=== PATIENT | female | born 1980 | race Caucasian/White ===

== ENCOUNTER 2025-03-05 13:44 | Outpatient (OUT) | payer BC, SELFPAY ==
--- OUTSIDE RECORDS SUMMARY | 2025-03-05 13:10 | XMS_ITS | Encounter Summary ---
Author Organization [facility] Address [address] [place] [address] Care Team Providers Care Electronics Design Engineer Name Role Phone Unavailable Primary Care Provider Unavailabl e Reason for Visit * Reason Comments PCOS, Not Currently Desiring Encounter Details Date Type Department Care Team (Late Contact Info) Description 03/05/2025 1:10 PM EDT Office Visit JAMAR WAGNER [address] [place] [phone] Teja Potter DO [address] [place] [address] [address] [place], [place] [id number] PCOS (polycystic ovarian syndrome); Dysmenorrhea; Abnormal facial hair; Other acne; History of pulmonary embolus (PE) Social History Tobacco Use Types Packs/Day Years Used Date Smoking Tobacco: Never Assessed Comments Unknown Sex and Gender Information Value Date Recorded Sex Assigned at Not on file Legal Sex Female 3:33 PM EDT Gender Identity Not on file Sexual Orientation Not on file documented as of this encounter Last Filed Vital Signs Vital Sign Reading Time Taken Comments Blood Pressure 110/72 03/05/2025 1:18 PM EDT Pulse - - Temperature - - Respiratory Rate - - Oxygen Saturation - - Inhaled Oxygen Concentration - - Weight 88.4 kg (194 lb 12.8 oz) 03/05/2025 1:18 PM EDT Height - - Body Mass Index - - documented in this encounter Plan of Treatment Upcoming Encounters Date Type Department Care Team (Late Contact Info) Description 03/28/2025 8:00 AM EDT Ancillary Procedure [facility]AG[facility] [address] [facility] [place] [phone] 04/25/2025 9:40 AM EDT Procedure Visit [facility] Saurabh WAGNER [address] [facility] [address] Teja Potter DO [address] [facility] [place] [address] Scheduled Orders Name Type Priority Associated Diagnoses Orde r Schedule Testosterone, free, total Lab Routine Dysmenorrhea Ordered: 03/05/2025 hCG, quantitative, Lab Routine PCOS (polycystic ovarian syndrome) Ordered: 03/05/2025 TSH Lab Routine PCOS (polycystic ovarian syndrome) Ordered: 03/05/2025 T4, free Lab Routine PCOS (polycystic ovarian syndrome) Ordered: 03/05/2025 CBC and differential Lab Routine PCOS (polycystic ovarian syndrome) Ordered: 03/05/2025 Follicle stimulating hormone Lab Routine PCOS (polycystic ovarian syndrome) Ordered: 03/05/2025 Luteinizing hormone Lab Routine PCOS (polycystic ovarian syndrome) Ordered: 03/05/2025 Hemoglobin A1c Lab Routine Dysmenorrhea Ordered: 03/05/2025 DHEA-sulfate Lab Routine PCOS (polycystic ovarian syndrome) Ordered: 03/05/2025 DHEA Lab Routine PCOS (polycystic ovarian syndrome) Expected: 03/05/2025 (Approximate), Expires: 03/05/2026 US Pelvis w/ TV Imaging Routine PCOS (polycystic ovarian syndrome) Expected: 03/05/2025, Expires: 03/05/2026 documented as of this encounter Visit Diagnoses Diagnosis PCOS (polycystic ovarian syndrome) Polycystic ovaries Dysmenorrhea Abnormal facial hair Other acne History of pulmonary embolus (PE) documented in this encounter
--- OUTSIDE RECORDS SUMMARY | 2025-03-05 13:50 | XMS_ITS | Clinical Summary ---
Author Organization [employer] [facility] tem Address [id number] [address] [place] [address] Care Team Providers Care Armature Winder Repair Name Role Phone Services, [facility] Primary Care Provider Allergies No known active allergies Medications * This document contains information received from the source organization and may not represent a complete record from that organization. ALPRAZolam (XANAX) 1 mg tablet Take 1 mg by mouth nightly as needed for anxiety. Active SUMAtriptan (IMITREX) 100 mg tabletIndicatio ns:migraine Take 100 mg by mouth once as needed for migraine (Take one tablet at onset of headache, and one tablet 2 hrs after first dose) Indications: Migraine. May repeat in 2 hours if unresolved. Do not exceed 200 mg in 24 hours. Active ibuprofen (ADVIL,MOTRIN) 800 mg tablet Take 1 tablet (800 mg total) by mouth every 8 (eight) hours as needed for pain for up to 30 doses. 30 tablet 0 03/21/2017 Active DESVENLAFAXINE SUCCINATE (PRISTIQ ORAL) Take by mouth. Active SUMAtriptan (IMITREX) 100 mg tablet Take 1 tablet (100 mg total) by mouth once as needed for migraine for up to 9 doses. Repeat once in 2 hrs prn--(2 only in 24 hr) 9 tablet 08/21/2017 Active amitriptyline (ELAVIL) 25 mg tablet 0 03/10/2019 Active ALPRAZolam (XANAX) 1 mg tablet Take 1 mg by mouth 2 (two) times a day as needed. 0 01/27/2019 Active phentermine (ADIPEX-P) 37.5 mg tablet Take 37.5 mg by mouth daily. 0 03/26/2019 Active Active Problems Problem Noted Date Diagnosed Date Bipolar disorder 12/26/2015 Immunizations Immunization Administration Dates Next Due Tdap 12/24/2015 Social History Tobacco Use Types Packs/Day Years Used Date Smoking Tobacco: Smoker, Current Status Unknown Smokeless Tobacco: Never Alcohol Use Standard Drinks/Week Comments Yes 0 (1 standard drink = 0.6 oz pure alcohol) social drinker 4-5 mixed drinks twicw a month Childcare Answer Date Recorded Childcare Unknown 12/20/2018 Employment Answer Date Recorded Employment Unknown 12/20/2018 Hunger Screening Answer Date Recorded Within the past 12 months we worried whether our food would run out before we got money to buy more. Never True 08/10/2024 Within the past 12 months th e food we bought just didn't last and we didn't have money to get more. Never True 08/10/2024 Purpose - Life Answer Date Recorded Purpose and direction in life Unknown Comments No Sex and Gender Information Value Date Recorded Sex Assigned at Not on file Legal Sex Female 11:58 AM EDT Gender Identity Not on file Sexual Orientation Not on file Last Filed Vital Signs Vital Sign Reading Time Taken Comments Blood Pressure 139/75 08/10/2024 8:52 PM EST Pulse 62 08/10/2024 8:52 PM EST Temperature 36.5 C (97.7 F) 08/10/2024 8:52 PM EST Respiratory Rate 17 08/10/2024 8:52 PM EST Oxygen Saturation 99% 08/10/2024 8:52 PM EST Inhaled Oxygen Concentration - - Weight 88.5 kg (195 lb) 05/14/2022 6:52 AM EDT Height 157.5 cm (5' 2 ) 05/14/2022 6:52 AM EDT Body Mass Index 35.67 05/14/2022 6:52 AM EDT Plan of Treatment Health Maintenance Due Date Last Done Comments Tobacco Counseling 1982 Depression Screening 1994 Pap Smear 09/20/2003 Adult BMI Screening 05/14/2023 05/14/2022 Influenza Vaccine 03/11/2025 Tobacco Screening 08/10/2025 08/10/2024 DTaP,Tdap and Td Vaccines (2 - Td or Tdap) 12/23/2025 12/24/2015 Medical Devices Not on file Insurance [employer] Advance Directives * Full Code (Latest Code Status on File) Date Activated Date Inactivated Comments 12/25/2015 3:30 AM 12/28/2015 3:55 PM Care Teams Armature Winder Repair Relationship Specialty Start Date End Date [facility], [place] [id number] [place] PCP - General Family Medicine 04/04/19
--- OUTSIDE RECORDS SUMMARY | 2025-03-05 13:50 | XMS_ITS | Encounter Summary ---
Author Organization [facility] Address [address] [place] [address] Care Team Providers Care Tray Room Worker Name Role Phone Unavailable Primary Care Provider Unavailabl e Encounter Details Date Type Department Care Team (Late st Contact Info) Description 03/05/2025 Bamboo flowsheet JAMAR WAGNER [address] [place] [phone] Teja Potter, DO [address] [place], [place] [phone] Social History Tobacco Use Types Packs/Day Years Used Date Smoking Tobacco: Never Assessed Comments Unknown Sex and Gender Information Value Date Recorded Sex Assigned at Not on file Legal Sex Female 3:33 PM EDT Gender Identity Not on file Sexual Orientation Not on file documented as of this encounter Plan of Treatment Upcoming Encounters Date Type Department Care Team (Late st Contact Info) Description 03/28/2025 8:00 AM EDT Ancillary Procedure [facility]AG[facility] [address] [facility] [place] [phone] 04/25/2025 9:40 AM EDT Procedure Visit JAMAR WAGNER [address] [place] [phone] Teja Potter, [address] [place], [place] [phone] documented as of this encounter Visit Diagnoses Not on filedocumented in this encounter
--- OUTSIDE RECORDS SUMMARY | 2025-03-05 13:50 | XMS_ITS | Clinical Summary ---
Author Organization [facility] Address [facility] [place] [address] Care Team Providers Care Real Estate Processor Name Role Phone Unavailable Primary Care Provider Unavailabl e Allergies No known active allergies Medications SUMAtriptan (Imitrex) 100 MG tablet Take 100 mg by mouth 1 (one) time if needed Active Encounters Date Type Department Care Team Description 03/05/2025 1:10 PM EDT Office Visit JAMAR WAGNER [address] [place] [address] [place] [phone] Teja Potter DO PCOS (polycystic ovarian syndrome); Dysmenorrhea; Abnormal facial hair; Other acne; History of pulmonary embolus (PE) 03/05/2025 Bamboo flowsheet NOMGio WAGNER [address] [place], [place] [address] [phone] Teja Potter DO from Last 3 Months Family History Medical History Relation Name Comments Diabetes Other htn Other Relation Name Status Comments Other Social History Tobacco Use Types Packs/Day Years [...] - - Body Mass Index - - Plan of Treatment Upcoming Encounters Date Type Department Care Team ( Contact Info) Description 03/28/2025 8:00 AM EDT Ancillary Procedure NOMGio WAGNER [address] [place] [phone] 04/25/2025 9:40 AM EDT Procedure Visit NOMGio WAGNER [address] [place] [phone] Teja Potter DO [address] [facility] [place] [address] Insurance BS
[2025-03-05 14:23] LABS: Hematocrit 41.5 % (36.0-48.0); Hemoglobin 14.0 g/dL (12.0-16.0); Immature Granulocytes Abs Auto 0.04 10^3/uL (0.00-0.03); Immature Granulocytes Pct Auto 0.5 % (0.0-0.5); Lymphocytes Absolute Auto 1.9 10^3/uL (1.2-3.8); Mean Corpuscular HGB Conc 33.7 g/dL (29.9-35.2); Mean Corpuscular Hemoglobin 31.9 pg (26.7-34.0); Mean Corpuscular Volume 94.5 fL (81.0-99.0); Platelet Count 307 10^3/uL (150-450); Red Blood Count 4.39 10^6/uL (4.20-5.40); White Blood Count 8.0 10^3/uL (4.0-11.0)
[2025-03-05 14:53] LABS: Thyroid Stimulating Hormone 0.888 uIU/mL (0.358-3.740)
[2025-03-06 04:07] LABS: FSH 3.0 mIU/mL (.)
[2025-03-14 03:07] LABS: DHEA, Serum 262 ng/dL (31-701)
== END 2025-03-05 13:45 | disposition home or self-care (01) ==
PROVIDERS: PCP Family Medicine; Visit Provider Obstetrics & Gynecology
DX: N94.6 Dysmenorrhea, unspecified (principal); E28.2 Polycystic ovarian syndrome
CPT/HCPCS: 36415; 82626; 82627; 83001; 83002; 83036; 84402; 84403; 84439; 84443; 84702; 85025

== ENCOUNTER 2025-04-25 12:36 | Outpatient (REF) | payer BC, SELFPAY ==
--- OUTSIDE RECORDS SUMMARY | 2025-04-25 09:40 | XMS_ITS | Encounter Summary ---
Author Organization [facility] Address [address] [place] [address] Care Team Providers Care Trim Operator Name Role Phone Unavailable Primary Care Provider Unavailabl e Reason for Visit * Reason Comments Gynecologic Exam Encounter Details Date Type Department Care Team (Latest Contact Info) Description 04/25/2025 9:40 AM EDT Procedure Visit JAMAR [place] [facility] [address] [facility] [place] [phone] Teja Potter DO [address] [place], [id number] Well woman exam with routine gynecological exam; Encounter for screening mammogram for malignant neoplasm of breast Social History Tobacco Use Types Packs/Day Years Used Date Smoking Tobacco: Never Assessed Comments No Sex and Gender Information Value Date Recorded Sex Assigned at Not on file Legal Sex Female 3:33 PM EDT Gender Identity Not on file Sexual Orientation Not on file documented as of this encounter Last Filed Vital Signs Vital Sign Reading Time Taken Comments Blood Pressure 114/72 04/25/2025 9:43 AM EDT Pulse - - Temperature - - Respiratory Rate - - Oxygen Saturation - - Inhaled Oxygen Concentration - - Weight 88 kg (194 lb) 04/25/2025 9:43 AM EDT Height 157.5 cm (5' 2 ) 04/25/2025 9:43 AM EDT Body Mass Index 35.48 04/25/2025 9:43 AM EDT documented in this encounter Progress Notes * Teja Potter DO - 04/25/2025 9:40 AM EDT Reason for Appointment: Patient ID: Miranda Hutchison is a 44 y.o. female who presents for Gynecologic Exam Patient presents today for Annual Exam. Current Medications: has a current medication list which includes the following prescription(s): sumatriptan. Medical History: Active Ambulatory Problems Diagnosis Date Noted No Active Ambulatory Problems Resolved Ambulatory Problems Diagnosis Date Noted No Resolved Ambulatory Problems Past Medical History: Diagnosis Date PCOS (polycystic ovarian syndrome) Family History[1] Social History Tobacco Use Smoking status: Not on file Smokeless tobacco: Not on file Substance Use Topics Alcohol use: Not on file Drug use: Not on file Surgical History[2] Allergies[3] Review of Systems: Review of Systems Constitutional: Negative. HENT: Negative. Eyes: Negative. Respiratory: Negative. Cardiovascular: Negative. Gastrointestinal: Negative. Genitourinary: Negative. Musculoskeletal: Negative. Skin: Negative. Neurological: Negative. All other systems reviewed and are negative. Hematological: Negative. Endocrine: Negative. Allergic/Immunologic: Negative. Objective Physical Exam Constitutional: Appearance: Normal appearance. She is well-developed. Genitourinary: Vulva normal. Cardiovascular: Rate and Rhythm: Normal rate and regular rhythm. Pulmonary: Effort: Pulmonary effort is normal. Breath sounds: Normal breath sounds. Abdominal: General: Bowel sounds are normal. There is no distension. Palpations: Abdomen is soft. Tenderness: There is no abdominal tenderness. There is no guarding or rebound. Musculoskeletal: General: No swelling. Normal range of motion. Right lower leg: No edema. Left lower leg: No edema. Neurological: Mental Status: She is alert and oriented to person, place, and time. Skin: General: Skin is warm and dry. Psychiatric: Mood and Affect: Mood normal. Behavior: Behavior normal. Vitals and nursing note reviewed. Exam conducted with a contour stitcher present. Vitals: Estimated body mass index is 35.48 kg/m?? as calculated from the following: Height as of this encounter: 5' 2 . Weight as of this encounter: 194 lb. BP: 114/72 Patient's last menstrual period was 04/18/2025 (approximate). Assessment/Plan Encounter Diagnosis: ICD-10-CM 1. Well woman exam with routine gynecological exam Z01.419 THIN PREP TIS PAP AND HR HPV DNA 2. Encounter for screening mammogram for malignant neoplasm of breast Z12.31 Bilateral screening mammogram Bilateral screening mammogram Annual Exam: Patient presents today for an annual exam. Patient states she is doing well and has no complaints. Pap was obtained without difficulty. Orders Placed This Encounter Procedures Bilateral screening mammogram Follow Up: Patient is to return in one year for annual unless needed otherwise. Documented by Teja Potter DO on behalf of: Teja Potter DO [1] Family History Problem Relation Name Age of Onset Other (htn) Other Diabetes Other [2] Past Surgical History: Procedure Laterality Date SECTION, LOW TRANSVERSE x1 [3] No Known Allergies documented in this encounter Plan of Treatment Scheduled Orders Name Type Priority Associated Diagnoses Orde r Schedule Bilateral screening mammogram Imaging Routine Encounter for screening mammogram for malignant neoplasm of breast Expected: 04/25/2025 (Approximate), Expires: 06/25/2026 THIN PREP TIS PAP AND HR HPV DNA Pathology and Cytology Routine Well woman exam with routine gynecological exam Ordered: 04/25/2025 documented as of this encounter Visit Diagnoses Diagnosis Well woman exam with routine gynecological exam Routine gynecological examination Encounter for screening mammogram for malignant neoplasm of breast documented in this encounter
--- OUTSIDE RECORDS SUMMARY | 2025-04-25 12:40 | XMS_ITS | Clinical Summary ---
Author Organization [facility] Address [address] [place] [address] Care Team Providers Care Repairer Wood Furniture Name Role Phone Unavailable Primary Care Provider Unavailabl e Allergies No known active allergies Medications SUMAtriptan (Imitrex) 100 MG tablet Take 100 mg by mouth 1 (one) time if needed Active Encounters Date Type Department Care Team Description 04/25/2025 9:40 AM EDT [place] [address] Teja Potter DO Well woman exam with routine gynecological exam; Encounter for screening mammogram for malignant neoplasm of breast 04/25/2025 Bambomildred flowsheet [facility] Saurabh WAGNER [address] [place] [address] Teja Potter DO 03/28/2025 8:00 AM EDT Ancillary Procedure [facility] Saurabh WAGNER [address] [place] [address] PCOS (polycystic ovarian syndrome) 03/28/2025 Travel 03/05/2025 1:10 PM EDT [place] [address] Teja Potter DO PCOS (polycystic ovarian syndrome); Dysmenorrhea; Abnormal facial hair; Other acne; History of pulmonary embolus (PE) 03/05/2025 Clinisync Result Encounter [facility] External Department Unsolicited Teja Potter DO 03/05/2025 Bamboo flowsheet [facility] Saurabh WAGNER [address] [place] [address] [place] [address] Teja Potter DO from Last 3 Months [...] Mass Index 35.48 04/25/2025 9:43 AM EDT Plan of Treatment Not on file Procedures Procedure Name Priority Date/Time Associated Diagnosis Comments US PELVIC COMPLETE W/ TV Routine 025 8:44 AM EDT PCOS (polycystic ovarian syndrome) ALL DEHYDROEPIANDROSTERONE Routine 03/05 2:05 PM EDT SRM[facility]H TESTOSTERONE FREE/TOT EQUILIB Routine 03/05/2025 2:05 PM EDT ALL FOLLICLE STIMULATING HORMONE Routine 03/05/2025 2:05 PM EDT ALL LUTEINIZING HORMONE Routine 03/05/20 2:05 PM EDT ALL DHEA SULFATE Routine 03/05/2025 2:05 PM EDT ALL THYROXINE (T4) FREE Routine 03/05/20 2:05 PM EDT TBH PREG QUANT HCG Routine 03/05/2025 2: 05 PM EDT ALL THYROID STIM HORMONE Routine 025 2:05 PM EDT MLR HEMOGLOBIN A1C Routine 03/05/2025 2: 05 PM EDT ALL CBC WITH AUTO DIFF Routine 2:05 PM EDT from Last 3 Months Results * US Pelvis w/ TV (03/28/2025 8:44 AM EDT) Anatomical Region Laterality Modality Pelvis Ultrasound 03/28/2025 12:1 0 PM EDT Impressions 03/28/2025 1:07 PM EDT 1. Normal uterine and endometrial appearance. 2. Follicular appearing ovaries. TRANSCRIBED BY: ELECTRONICALLY SIGNED BY: Ha Mckeon MD Narrative 03/28/2025 1:07 PM EDT FINDINGS: Uterus 9.6 x 4.3 x 5.5 cm Endometrium 8 mm Right Ovary 3.5 x 2.6 x 3.0cm Left Ovary 3.6 x 2.8 x 3.0cm Normal uterine orientation and morphology are identified. No worrisome mass lesions are seen. No pelvic fluid is present. Bilateral ovaries demonstrate small peripheral follicles, unremarkable in appearance. Overall appearance is normal for this age. Procedure Note Ha Mckeon MD - 03/28/2025 FINDINGS: Uterus 9.6 x 4.3 x 5.5 cm Endometrium 8 mm Right Ovary 3.5 x 2.6 x 3.0cm Left Ovary 3.6 x 2.8 x 3.0cm Normal uterine orientation and morphology are identified. No worrisomemass lesions are seen. No pelvic fluid is present. Bilateral ovaries demonstrate small peripheral follicles, unremarkable inappearance. Overall appearance is normal for this age. IMPRESSION: 1. Normal uterine and endometrial appearance. 2. Follicular appearing ovaries. TRANSCRIBED BY: ELECTRONICALLY SIGNED BY: Ha Mckeon MD us Teja Tariq DO [facility] [place] PROCEDURES Final Result * TBH PREG QUANT HCG (03/05/2025 2:05 PM EDT) HCG QUANTITATIVE <1 mIU/mL TBH Comment: 5-50 0.2-1 WEEK 50-500 1-2 WEEKS 100-5,000 2-3 WEEKS 500-10,000 3-4 WEEKS 1,000-50,000 4-5 WEEKS 10,000-100,000 5-6 WEEKS 15,000-200,000 6-8 WEEKS 10,000-100,000 2-3 MONTHS 03/05/2025 2:05 PM EDT 03/05/2025 2:17 PM EDT Narrative [facility] - 03/05/2025 2:56 PM EDT Teja Tariq DO [facility] Final Result [facility] TB * SRMCOH TESTOSTERONE FREE/TOT EQUILIB (03/05/2025 2:05 PM EDT) TESTOSTERONE 42 4 - 50 ng/dL TB FREE TESTOSTERONE(DIRE CT) 1.8 0.0 - 4.2 pg/mL TB Comment: Performed at: [facility] [address] [id number] Office Correspondent: Missael Nicole PhD, Phone: [phone] Performed at: [facility] [address] [id number] Office Correspondent: Renuka Peter MD, Phone: [phone] 03/05/2025 2:05 PM EDT 03/05/2025 2:17 PM EDT Narrative CLIN[facility]YNC - 03/11/2025 1:07 AM EDT Teja Tariq DO [facility] Final Result [facility] TB * MLR HEMOGLOBIN A1C (03/05/2025 2:05 PM EDT) GLYCOHEMOGLOBIN A1C 4.7 4.5 - 6.2 % TB Comment: ADA RECOMMENDED LIMIT 4.0 - 6.0 ADA THERAPEUTIC TARGET < 7.0 ACTION SUGGESTED > 7.0 ESTIMATED AVERAGE GLUCOSE 88 mg/dL TB 03/05/2025 2:05 PM EDT 03/05/2025 2:17 PM EDT Narrative CLINISYNC - 03/05/2025 2:40 PM EDT Teja Tariq DO CLIN[facility]YNC Final Result [facility] * ALL THYROXINE (T4) FREE (03/05/2025 2:05 PM EDT) FREE T4 0.86 0.76 - 1.46 ng/dL TBH 03/05/2025 2:05 PM EDT 03/05/2025 2:17 PM EDT Narrative CLINISYNC - 03/05/2025 3:19 PM EDT Teja Tariq DO CLINISYNC Final Result Performing Organization Address City/[facility]/ZIP Co de Phone Number [facility] * ALL THYROID STIM HORMONE (03/05/2025 2:05 PM EDT) THYROID STIMULATING HORMONE 0.888 0.358 - 3.740 uIU/mL TBH 03/05/2025 2:05 PM EDT 03/05/2025 2:17 PM EDT Narrative CLINISYNC - 03/05/2025 2:56 PM EDT Teja Tariq DO CLINISYNC Final Result Performing Organization Address [facility]/ZIP Co de Phone Number [facility] * ALL LUTEINIZING HORMONE (03/05/2025 2:05 PM EDT) LUTEINIZING HORMONE(LH) 3.1 . mIU/mL TBH Comment: Adult Female Range Follicular phase 2.4 - 12.6 Ovulation phase 14.0 - 95.6 Luteal phase 1.0 - 11.4 Postmenopausal 7.7 - 58.5 03/05/2025 2:05 PM EDT 03/05/2025 2:17 PM EDT Narrative CL[facility]ISYNC - 03/11/2025 1:07 AM EDT [facility] [place] [facility] Final Result Performing Organization Address [facility] Co de Phone Number [facility] * ALL FOLLICLE STIMULATING HORMONE (03/05/2025 2:05 PM EDT) FSH 3.0 . mIU/mL TBH Comment: Adult Female Range Follicular phase 3.5 - 12.5 Ovulation phase 4.7 - 21.5 Luteal phase 1.7 - 7.7 Postmenopausal 25.8 - 134.8 Performed at: [address] [id number] Office Correspondent: Missael Nicole PhD, Phone: [phone] 03/05/2025 2:05 PM EDT 03/05/2025 2:17 PM EDT Narrative CLINISYNC - 03/11/2025 1:07 AM EDT [facility] Final Result Performing Organization Address [facility] Co de Phone Number [facility] * ALL DHEA SULFATE (03/05/2025 2:05 PM EDT) DHEA-SULFATE 265.0 57.3 - 279.2 ug/dL TBH 03/05/2025 2:05 PM EDT 03/05/2025 2:17 PM EDT Narrative CLINISYNC - 03/11/2025 1:07 AM EDT [facility] [place]q DO [facility] Final Result Performing Organization Address [facility] Co de Phone Number [facility] * ALL DEHYDROEPIANDROSTERONE (03/05/2025 2:05 PM EDT) DHEA, SERUM 262 31 - 701 ng/dL TBH Comment: This test was developed and its performance characteristics determined by [facility]. It has not been cleared or approved by the Food and Drug Administration. Performed at: [address] [id number] Office Correspondent: Renuka Peter MD, Phone: [phone] 03/05/2025 2:05 PM EDT 03/05/2025 2:17 PM EDT Narrative [facility] - 03/14/2025 3:07 AM EDT us Teja Tariq DO CLINIS[facility]NC Final Result [facility] * (ABNORMAL) ALL CBC WITH AUTO DIFF (03/05/2025 2:05 PM EDT) TB WBC 8.0 4.0 - 11.0 10 3/uL TBH TBH RBC 4.39 4.20 - 5.40 10 6/uL TBH TBH HGB 14.0 12.0 - 16.0 g/dL TBH TBH HCT 41.5 36.0 - 48.0 % TBH TBH MCV 94.5 81.0 - 99.0 fL TBH TBH MCH 31.9 26.7 - 34.0 pg TBH TBH MCHC 33.7 29.9 - 35.2 g/dL TBH TBH RDW 12.4 11.0 - 15.0 % TBH TBH PLT 307 150 - 450 10 3/uL TBH TBH MPV 8.6(L) 9.5 - 13.5 fL TBH NEUTROPHILS PERCENT AUTO 65.5 43.0 - 75.0 % TBH LYMPHOCYTES PERCENT AUTO 24.1 20.5 - 60.0 % TBH MONOCYTES PERCENT AUTO 7.0 1.7 - 12.0 % TBH TBH EO % 2.0 0.9 - 7.0 % TBH BASOPHILS PERCENT AUTO 0.9 0.2 - 2.0 % TBH IMMATURE GRANULOCYTES PCT AUTO 0.5 0.0 - 0.5 % TBH NEUTROPHILS ABSOLUTE AUTO 5.2 1.4 - 6.5 10 3/uL TBH LYMPHOCYTES ABSOLUTE AUTO 1.9 1.2 - 3.8 10 3/uL TBH MONOCYTES ABSOLUTE AUTO 0.6 0.3 - 0.8 10 3/uL TBH TBH EO # 0.2 0.0 - 0.7 10 3/uL TBH BASOPHILS ABSOLUTE AUTO 0.1 0.0 - 0.1 10 3/uL TBH IMMATURE GRANULOCYTES ABS AUTO 0.04(H) 0.00 - 0.03 10 3/uL TBH 03/05/2025 2:05 PM EDT 03/05/2025 2:17 PM EDT Narrative CLINISYNC - 03/05/2025 2:24 PM EDT us Teja Tariq DO CLINIS[facility]NC Final Result CLINISYNC [facility] from Last 3 Months Insurance
--- OUTSIDE RECORDS SUMMARY | 2025-04-25 12:40 | XMS_ITS | Encounter Summary ---
Author Organization [facility] Address [address] [place] [address] Care Team Providers Care Singeing Torch Operator Name Role Phone Unavailable Primary Care Provider Unavailabl e Encounter Details Date Type Department Care Team (Late st Contact Info) Description 04/25/2025 Bamboo flowsheet [facility] [address] [place] [address] Teja Potter DO [address] [place], [place] [id number] Social History Tobacco Use Types Packs/Day Years Used Date Smoking Tobacco: Never Assessed Comments No Sex and Gender Information Value Date Recorded Sex Assigned at Not on file Legal Sex Female 3:33 PM EDT Gender Identity Not on file Sexual Orientation Not on file documented as of this encounter Plan of Treatment Not on file documented as of this encounter Visit Diagnoses Not on filedocumented in this encounter
[2025-04-30 15:09] LABS: Age Gdln ACOG Testing Note (.); IGP, Aptima HPV, rfx 16/18,45 Note (.)
== END 2025-04-25 12:37 | disposition home or self-care (01) ==
LOC: LAB 12:36
PROVIDERS: PCP Family Medicine; Visit Provider Obstetrics & Gynecology
DX: Z01.419 Encounter for gynecological examination (general) (routine) without abnormal findings (principal)
CPT/HCPCS: 87624; 88175